=== PATIENT | female | born 1970 | race Caucasian/White ===

== ENCOUNTER 2017-09-02 16:48 | Emergency (ER) | payer SELFPAY ==
[~2017-09-02] VITALS: Ht 167.6 cm; Wt 81.2 kg
[2017-09-02 17:58] LABS: BASOPHIL (%) 1.9 % (0-1); BASOPHIL COUNT 0.1 K/uL (0-0.1); EOSINOPHIL (%) 2.8 % (0-5); EOSINOPHIL COUNT 0.2 K/uL (0-0.3); HEMATOCRIT 39.5 % (36.0-46.0); HEMOGLOBIN 13.5 G/DL (11.9-15.5); IMMATURE GRANULOCYTE (%) 0.2 % (0.0-0.7); LYMPHOCYTE (%) 33.4 % (15-42); LYMPHOCYTE COUNT 1.8 K/uL (1.0-2.8); MCH 30.4 PG (29.0-34.0); MCHC 34.2 G/DL (30.0-36.0); MONOCYTE (%) 9.4 % (3-12); MONOCYTE COUNT 0.5 K/uL (0-0.8); NEUTROPHIL (%) 52.3 % (45-76); NEUTROPHIL COUNT 2.8 K/uL (1.8-6.4); PLATELET COUNT 220 K/uL (156-360); RBC DIS.WIDTH-CV 11.9 % (11.8-14.6); RBC DIS.WIDTH-SD 38.5 % (39-53); RED BLOOD COUNT 4.44 M/uL (3.80-5.20); WHITE BLOOD COUNT 5.3 K/uL (4.1-10.2)
[2017-09-02 18:08] LABS: CHLORIDE 103 mEq/L (99-109); SODIUM 139 mEq/L (136-147)
[2017-09-02 18:10] LABS: GLUCOSE 102 mg/dL (70-99); TOTAL PROTEIN 6.6 g/dL (6.4-8.3)
[2017-09-02 18:12] LABS: TOTAL BILIRUBIN 0.4 mg/dL (0.0-1.0)
[2017-09-02 18:14] LABS: ALKALINE PHOSPHATASE 69 IU/L (3-129); CREATININE 0.8 mg/dL (0.6-1.3); GFR ESTIMATE (CALCULATED) > 59 mL/min/
[2017-09-02 18:15] LABS: AST (GOT) 24 IU/L (2-34); UREA NITROGEN (BUN) 8 mg/dL (9-23)
[2017-09-02 18:17] LABS: ALT (GPT) 24 IU/L (3-49); LIPASE 17 U/L (1.0-51.0)
[2017-09-02 18:19] LABS: TROP-I INTERPRETATION NEGATIVE; TROPONIN-I < 0.01 ng/mL (0.0-0.30)
[2017-09-02 19:51] VITALS: BP 105/78
== END 2017-09-02 19:50 | disposition home or self-care (01) ==
LOC: EME 16:48
PROVIDERS: Emergency Medicine
DX: R10.9 Unspecified abdominal pain (principal); R00.0 Tachycardia, unspecified; K92.1 Melena; Z88.2 Allergy status to sulfonamides
CPT/HCPCS: 71046; 76705; 80053; 83690; 84484; 85025; 93005; 99281; 99285